=== PATIENT | male | born 1955 | race Caucasian/White ===

== ENCOUNTER 2025-02-18 19:26 | Emergency (ER) | payer MEDICARE, BC ==
[2025-02-18] MEDS ORDERED: Amoxicillin 500 MG Cap ONE (22:00)
== END 2025-02-18 20:23 | disposition home or self-care (01) ==
LOC: LB.ED 19:26
DX: L60.0 Ingrowing nail (principal); Z88.1 Allergy status to other antibiotic agents; Z88.8 Allergy status to other drugs, medicaments and biological substances; Z79.899 Other long term (current) drug therapy; Z79.82 Long term (current) use of aspirin; Z79.890 Hormone replacement therapy
CPT/HCPCS: 99283; A9270-GY